=== PATIENT | male | born 1970 | race Caucasian/White ===

== ENCOUNTER 2018-01-02 18:05 | Emergency (ER) | payer BC ==
[~2018-01-02] VITALS: Ht 193 cm; Wt 150.7 kg
[~2018-01-02 18:05] MED LIST: ASPIR-TRIN325 M1 PO; COUMADIN,JANTO7.5 MG PO; COUMADIN,JANTOVE5 MG PO; Coumadin dosing per PO; FLOMAX0.4 MG PO; Invanz IV; LOVENOX100 MG/1 M SC; METAMUCIL PACKE1 PKT PO; METAMUCIL POWD288 GM PO; Metamucil Packet PO; NOHOMEMEDS; PERCOCET 5/31 TABLET PO; PRILOSEC40 MG PO; PROMETHAZINE HC25 M1 PO; PriLOSEC PO; Prilosec PO; RELPAX20 MG PO; TRAZODONE HCL50 MG PO; XANAX0.5 MG PO; Xanax PO
[2018-01-02 19:08] LABS: HEMATOCRIT 45.5 % (38.0-50.0); HEMOGLOBIN 15.7 G/DL (12.5-16.6); MCH 29.8 PG (29.0-34.0); MCHC 34.5 G/DL (30.0-36.0); MCV 86.5 FL (86-99); PLATELET COUNT 315 K/uL (156-360); RBC DIS.WIDTH-CV 12.8 % (11.8-14.6); RBC DIS.WIDTH-SD 40.3 % (39-53); RED BLOOD COUNT 5.26 M/uL (4.00-5.50); WHITE BLOOD COUNT 10.7 K/uL (4.1-10.2)
[2018-01-02 19:21] LABS: CHLORIDE 108 mEq/L (99-109); POTASSIUM 3.6 mEq/L (3.7-5.4); SODIUM 142 mEq/L (136-147)
[2018-01-02 19:22] LABS: GLUCOSE 102 mg/dL (70-99)
[2018-01-02 19:26] LABS: GFR ESTIMATE (CALCULATED) > 59 mL/min/ (58.99-99999)
[2018-01-02 19:27] LABS: UREA NITROGEN (BUN) 16 mg/dL (9-23)
[2018-01-02 19:37] LABS: TROP-I INTERPRETATION NEGATIVE; TROPONIN-I < 0.01 ng/mL (0.0-0.30)
[2018-01-02 22:41] LABS: TROP-I INTERPRETATION NEGATIVE; TROPONIN-I < 0.01 ng/mL (0.0-0.30)
[2018-01-02 23:12] VITALS: BP 126/83
== END 2018-01-02 23:08 | disposition home or self-care (01) ==
LOC: EME 18:05
PROVIDERS: Emergency Medicine
DX: R42 Dizziness and giddiness (principal); R07.89 Other chest pain; K21.9 Gastro-esophageal reflux disease without esophagitis; G43.909 Migraine, unspecified, not intractable, without status migrainosus; F41.9 Anxiety disorder, unspecified; Z79.01 Long term (current) use of anticoagulants; Z87.891 Personal history of nicotine dependence; Z86.718 Personal history of other venous thrombosis and embolism; Z87.442 Personal history of urinary calculi; Z87.19 Personal history of other diseases of the digestive system; Z87.01 Personal history of pneumonia (recurrent); Z88.8 Allergy status to other drugs, medicaments and biological substances; Z91.09 Other allergy status, other than to drugs and biological substances
CPT/HCPCS: 71046; 80048; 84484; 85027; 93005; 99281; 99284